=== PATIENT | male | born 1965 | race Caucasian/White ===

== ENCOUNTER 2019-03-27 16:27 | Emergency (ER) | payer OTHER ==
[~2019-03-27] VITALS: Ht 180.3 cm; Wt 175.0 kg
[2019-03-27] MEDS ORDERED: ACETAMINOPHEN 500 MG TABLET PO ONE (17:30)
[2019-03-27] MEDS ORDERED: PredniSONE 20 MG TABLET PO ONE (17:30)
[2019-03-27 18:51] VITALS: BP 147/73
== END 2019-03-27 19:02 | disposition home or self-care (01) ==
LOC: EMS 16:29
DX: J03.90 Acute tonsillitis, unspecified (principal); E66.9 Obesity, unspecified; Z68.43 Body mass index [BMI] 50.0-59.9, adult
CPT/HCPCS: 87430; 99283; J7512

== ENCOUNTER 2025-09-11 12:07 | Emergency (ER) | payer OTHER ==
[~2025-09-11] VITALS: Ht 180.3 cm; Wt 172.7 kg
[2025-09-11 12:12] VITALS: TEMP 98.4
[2025-09-11] MEDS ORDERED: SEMA2PEN SQ (12:16)
[2025-09-11] MEDS ORDERED: SACU1TAB PO (12:16)
[2025-09-11] MEDS ORDERED: TAMS0.4C94 PO (12:16)
[2025-09-11 12:20] LABS: COVID AG,FIA SOURCE NASAL SWAB
[2025-09-11 12:40] LABS: RAPID GROUP A STREP PRELIM. NEGATIVE (NEGATIVE)
[2025-09-11 12:47] LABS: INFLUENZA TYPE A NEGATIVE FOR TYPE A (NEGATIVE); INFLUENZA TYPE B NEGATIVE FOR TYPE B (NEGATIVE); SARS-COV2 (COVID) ANTIGEN,FIA Negative (Negative)
[2025-09-11] MEDS ORDERED: AMOX-457 PO (12:58)
[2025-09-11] MEDS ORDERED: ACET-3385 PO (12:58)
[2025-09-11 13:23] VITALS: BP 146/94; PULSE 91; RESP 18; O2SAT 99
[2025-09-11] MEDS: AMOX TR/POT CLAV 875 MG/125 MG TABLET PO ONE (13:23)
[2025-09-11] MEDS: ACETAMINOPHEN 500 MG TABLET PO ONE (13:23)
== END 2025-09-11 13:43 | disposition home or self-care (01) ==
LOC: EMS 12:07
DX: J03.90 Acute tonsillitis, unspecified (principal); I50.9 Heart failure, unspecified; Z79.899 Other long term (current) drug therapy; Z20.822 Contact with and (suspected) exposure to COVID-19
CPT/HCPCS: 87081; 87430; 87804; 99283